=== PATIENT | female | born 2000 | race Caucasian/White ===

== ENCOUNTER 2022-06-15 15:08 | Emergency (ER) | payer BC, SELFPAY ==
[2022-06-15 15:10] VITALS: BP 124/88; PULSE 99; RESP 16; TEMP 36.2; O2SAT 100
[2022-06-15 15:27] LABS: Basophils Percent Auto 0.2 % (0.2-1.2); Eosinophils Percent Auto 0.2 % (0-4.4); Hematocrit 40.7 % (37.0-47.0); Hemoglobin 13.3 g/dL (12.0-15.0); Immature Granulocyte Absolute 0.03 K/mm3 (0.00-0.031); Immature Granulocyte Percent A 0.4 % (0-0.5); Lymphocytes Absolute Auto 1.08 K/mm3 (0.9-3.2); Lymphocytes Percent Auto 13.1 % (18.3-44.2); Mean Corpuscular HGB Conc 32.7 g/dl (32-36); Mean Corpuscular Hemoglobin 31.4 pg (26-34); Mean Platelet Volume 10.5 fl (7.4-10.4); Monocytes Absolute Auto 0.6 K/mm3 (0.1-0.6); Monocytes Percent Auto 7.2 % (2.6-8.5); Neutrophils Absolute Auto 6.5 K/mm3 (1.3-6.7); Neutrophils Percent Auto 78.9 % (45.5-73.1); Platelet Count Result 211 k/mm3 (150-375); Red Blood Count 4.24 M/mm3 (4.2-5.4); Red Cell Distribution Width 11.6 % (11.5-14.5); White Blood Count 8.2 K/mm3 (4.5-10.0)
[2022-06-15 15:39] LABS: Appearance Urine Clear (Clear); Bilirubin Urine Negative (Negative); Blood Urine Negative (Negative); Color Urine Yellow (Yellow); Glucose Urine UA Negative (Negative); Ketones Urine Negative (Negative); Leukocyte Esterase Ur Negative LEU/UL (Negative); Nitrate Urine Negative (Negative); Protein Urine Negative (Negative); Specific Grav Ur 1.019 (1.001-1.035); Urobilinogen Urine 0.2 mg/dL (<2.0); pH Urine 7.5 (5.0-9.0)
[2022-06-15 15:39] LABS: Alanine Aminotransferase 17 U/L (6-35); Albumin Level 4.5 g/dL (3.5-5.1); Alkaline Phosphatase 128 U/L (38-126); Anion Gap 5 mmol/L (8-16); Aspartate Amino Transferase 23 U/L (14-36); Blood Urea Nitrogen 8 mg/dL (7-17); Calcium 8.8 mg/dL (8.4-10.2); Carbon Dioxide 27 mmol/L (22-30); Chloride 102 mmol/L (98-107); Estimated CRCL calculation 102 ml/min; Estimated Glomerular Filt Rate > 60; Glucose 112 mg/dL (65-110); Lipase 56 U/L (23-300); Potassium 4.2 mmol/L (3.4-5.0); Sodium 134 mmol/L (137-145)
[2022-06-15 15:43] LABS: Add Urine Microscopic? NO
[2022-06-15] MEDS: ONDANSETRON HCL ODT 4 MG TABLET PO (17:11)
[2022-06-15 17:12] VITALS: BP 127/81; PULSE 75; RESP 18; O2SAT 100
[2022-06-15 21:16] VITALS: BP 116/79; PULSE 79; RESP 16; O2SAT 100
[2022-06-15 22:00] VITALS: BP 127/76; PULSE 76; RESP 16; O2SAT 100
[2022-06-15] MEDS: diphenhydrAMINE HCl INJ 50 MG/ML VIAL IV PUSH (22:45)
[2022-06-15] MEDS: KETOROLAC 30 MG/ML VIAL (*BKC) IV PUSH (22:45)
[2022-06-15] MEDS: PROCHLORPERAZINE EDISYLATE 10 MG/2 ML VIAL IV PUSH (22:45)
[2022-06-15] MEDS: SODIUM CHLORIDE 0.9% IV 1,000 ML 999 ML IV CONT (22:47)
--- NOTE | 2022-06-15 23:02 | ED.GENADULT ---
HPI - General Adult General Chief complaint: Nausea/Vomiting/Diarrhea Stated complaint: nausea/vomiting Time Seen by Provider: 06/15/22 20:02 History of Present Illness HPI narrative: Patient 22-year-old female who presents the emergency department with chief complaint of nausea vomiting and generalized malaise. The patient reports she had her wisdom teeth removed on Wednesday and reports has been taking Vicoprofen. The patient states that today she started having nausea and vomiting and generalized malaise. Related Data Home Medications Medication Instructions Recorded Confirmed citalopram 10 mg tablet 10 mg PO DAILY 12/07/19 Allergies Allergy/AdvReac Type Severity Reaction Status Date / Time No Known Allergies Allergy Verified 04/02/21 14:06 Review of Systems Review of Systems: A 10 system review of systems was completed on the patient and is negative except for what is stated in the HPI. Nursing and ancillary documentation was reviewed. [facility] Past Medical History Medical History Anxiety Eczema Family History Family History Grandparent Breast cancer Social History Social History Smoking status: Never smoker Alcohol intake: never Substance use: never Exam Narrative: GENERAL: Well-appearing, well-nourished, and in no acute distress. HEAD: Normocephalic, atraumatic. EYES: PERRLA and EOMI. ENT: Nares clear, no rhinorrhea or epistaxis. Mucous membranes moist. Well-healing incisions from wisdom tooth extraction NECK: Supple. CHEST: Clear to auscultation. No respiratory distress. HEART: Regular rate and rhythm. No murmur heard. Normal peripheral pulses. ABDOMEN: Soft, nontender, nondistended, normal active bowel sounds. EXTREMITIES: Normal range of motion. No edema. SKIN: Warm, dry, no rash. NEURO: No focal deficits. Alert and oriented x3. PSYCH: Normal mood and affect. Course Vital Signs Vital signs: Vital Signs Temperature 36.2 C L 06/15/22 15:10 Pulse Rate 99 06/15/22 15:10 Respiratory Rate 16 06/15/22 15:10 Blood Pressure 124/88 06/15/22 15:10 Pulse Oximetry 100 06/15/22 15:10 Oxygen Delivery Room Air 06/15/22 15:10 Temperature 36.2 C L 06/15/22 15:10 Pulse Rate 76 06/15/22 22:00 Respiratory Rate 16 06/15/22 22:00 Blood Pressure 127/76 06/15/22 22:00 Pulse Oximetry 100 06/15/22 22:00 Oxygen Delivery Room Air 06/15/22 15:10 Medical Decision Making MDM Narrative Medical decision making narrative: Differential diagnosis includes dehydration post medication side effect, electrolyte abnormality Patient received a liter normal saline Compazine Benadryl and Toradol the patient is feeling much better after receiving this laboratory studies were obtained which showed a white blood cell count of 8.2 hemoglobin of 13.3 electrolytes were within normal limits urinalysis also was within normal limits. Patient be discharged home with a prescription for Zofran and to follow-up with her primary provider Vital Signs Vital Signs: Vital Signs Temperature 36.2 C L 06/15/22 15:10 Pulse Rate 99 06/15/22 15:10 Respiratory Rate 16 06/15/22 15:10 Blood Pressure 124/88 06/15/22 15:10 Pulse Oximetry 100 06/15/22 15:10 Oxygen Delivery Room Air 06/15/22 15:10 Temperature 36.2 C L 06/15/22 15:10 Pulse Rate 76 06/15/22 22:00 Respiratory Rate 16 06/15/22 22:00 Blood Pressure 127/76 06/15/22 22:00 Pulse Oximetry 100 06/15/22 22:00 Oxygen Delivery Room Air 06/15/22 15:10 Lab Data 06/15/22 15:19 06/15/22 15:19 Labs: Lab Results 06/15/22 06/15/22 06/15/22 Range/Units 15:19 15:19 15:27 WBC 8.2 (4.5-10.0) K/mm3 RBC 4.24 (4.2-5.4) M/mm3 Hgb 13.3 (12.0-15.0) g/dL Hct 40.7 (37.0-47
[2022-06-16 00:30] VITALS: BP 118/76; PULSE 79; RESP 16; O2SAT 100
== END 2022-06-16 00:30 | disposition home or self-care (01) ==
PROVIDERS: Emergency Medicine; Emergency Provider Emergency Medicine; PCP Pediatrics
DX: R11.2 Nausea with vomiting, unspecified (principal); F41.9 Anxiety disorder, unspecified
CPT/HCPCS: 36415; 80053; 81003; 81025; 83690; 85025; 96361; 96374; 96375; 99284; A9270; J0780; J1200; J1885; J7030